=== PATIENT | male | born 1990 | race Caucasian/White ===

== ENCOUNTER 2023-06-07 16:07 | Inpatient (IN) ==
[2023-06-07] MEDS: Nicotine GUM 2MG FRUIT FLAVOR PO PRN ×2 (18:55→21:17)
[2023-06-07] MEDS: CloBAZam 10 mg TAB (NF) PO SCH (21:16)
[2023-06-08 08:47] LABS: HDL Cholesterol 43.7 mg/dL
[2023-06-08] MEDS: CloBAZam 10 mg TAB (NF) PO SCH (08:54)
[2023-06-08] MEDS ORDERED: Nicotine PATCH 21 MG/24 HR PATCH TRANSDERM SCH (09:00)
[2023-06-08] MEDS: Nicotine GUM 2MG FRUIT FLAVOR PO PRN (09:06)
== END 2023-06-08 12:30 | disposition home or self-care (01) | DRG 755 ==
LOC: BSU 16:48
PROVIDERS: ADMIT Psychiatry & Neurology Psychiatry; ATTEND Psychiatry & Neurology Psychiatry